=== PATIENT | female | born 1990 | race African-American/Black ===

== ENCOUNTER 2021-08-03 09:21 | Inpatient (IN) | payer OTHER ==
[~2021-08-03] VITALS: Ht 172.7 cm; Wt 73.5 kg
--- NOTE | 2021-08-03 09:32 | NUR ---
CALLED POISON CONTROL AND SPOKE TO LYDIA AND WAS NOTIFIED OF PT STATUS AND ALSO DOSAGE INGESTED THEY SUGGESTED... - NO CHARCOAL FOR THE PT - EKG, CARDIAC MONITORING FOR THE PT - CAUSES DROWSINESS, TACHYCARDIA, HYPOTENSION - FOR MORE EXTREME DOSAGES IT CAN CAUSE QT PROLONGATION OR SEIZURES - MONITOR FOR 6 HOURS AND CHECK EKG AGAIN
--- NOTE | 2021-08-03 09:40 | NUR ---
GENA FROM HOME, TOOK RISPERIDONE 1MG "58 PILLS"1 HOUR AGO STATE HEARING VOICES X 2 DAYS. FELLING DROWSY MEDICAL RECORD TRANSCRIBER. THE PATIENT IS ALERT AND ORIENTED X4. DENIES PAIN. IN ROOM AIR AND DENIES SOB. RESPIRATION REGULAR AND UNLABORED. DENIES SI/HI. ATTACHED TO THE MONITOR. WARM BLANKET PROVIDED FOR COMFORT. WILL CONTINUE TO MONITOR THE PATIENT.
--- NOTE | 2021-08-03 09:52 | NUR ---
COVID ANTIGEN SWAB DONE AND SENT TO THE LAB
[2021-08-03 10:10] LABS: BASOPHILS % (AUTO) 0.7 % (0.0-2.0); EOSINOPHILS % (AUTO) 1.6 % (0.0-6.0); HEMATOCRIT 38 % (33-45); HEMOGLOBIN 12.6 g/dL (11.5-14.8); LYMPHOCYTES # (AUTO) 0.9 K/uL (0.8-4.8); LYMPHOCYTES % (AUTO) 20.8 % (20.0-44.0); MEAN CORPUSCULAR HGB CONC 33 g/dl (31.0-36.0); MEAN CORPUSCULAR VOLUME 94 fL (82-100); MONOCYTES # (AUTO) 0.4 K/uL (0.1-1.30); MONOCYTES % (AUTO) 9.7 % (2.0-12.0); NEUTROPHILS % (AUTO) 67.2 % (43.0-81.0); PLATELET COUNT (AUTO) 271 K/uL (150-450); RED BLOOD CELL COUNT(AUTO) 4.06 MIL/uL (4.0-5.2); WHITE BLOOD COUNT (AUTO) 4.5 K/uL (4.3-11.0)
--- NOTE | 2021-08-03 10:46 | NUR ---
URINE COLLECTED AND SENT TO THE LAB
[2021-08-03 10:52] LABS: ALANINE AMINOTRANSFERASE 21 U/L (12-78); ALBUMIN 3.9 g/dL (3.4-5.0); ALCOHOL, BLOOD < 3 mg/dL (0-0); ALKALINE PHOSPHATASE 71 U/L (46-116); ASPARTATE AMINOTRANSFERASE 15 U/L (15-37); BILIRUBIN,DIRECT 0.2 mg/dL (0.0-0.2); BILIRUBIN,TOTAL 0.7 mg/dL (0.2-1.0); CALCIUM, SERUM 8.8 mg/dL (8.5-10.1); CARBON DIOXIDE 26 mmol/L (21-32); CHLORIDE 105 mmol/L (98-107); GLUCOSE 104 mg/dL (74-106); SODIUM SERUM 141 mmol/L (136-145); TOTAL PROTEIN, SERUM 7.4 g/dL (6.4-8.2); UREA NITROGEN, BLOOD 11 mg/dL (7-18)
[2021-08-03 10:56] LABS: POTASSIUM 2.7 mmol/L (3.5-5.1)
[2021-08-03 10:57] LABS: ACETAMINOPHEN 0 ug/ml (10-30)
[2021-08-03 11:07] LABS: BILIRUBIN,URINE NEGATIVE (NEGATIVE); COLOR,URINE YELLOW (YELLOW); LEUKOCYTE ESTERASE ,URINE NEGATIVE (NEGATIVE); NITRITE, URINE NEGATIVE (NEGATIVE); PH,URINE 5.5 (5.0-8.0); PROTEIN,URINE NEGATIVE (NEGATIVE); UGLUCOSE NEGATIVE (NEGATIVE); UROBILINOGEN,URINE 0.2 EU/dL (0.2)
[2021-08-03 12:24] LABS: BACTERIA,URINE None seen /HPF (None Seen); MUCUS,URINE Few /LPF (None Seen); RBC,URINE 0-2 /HPF (0-2); SQUAMOUS EPITHELIAL CELL,UR Many /HPF (None Seen); WBC,URINE 0-3 /HPF (0-3)
[2021-08-03] MEDS ORDERED: POTASSIUM CHLORIDE 20 MEQ TAB.PRT.SR PO ONE ×2 (13:26→13:30)
--- NOTE | 2021-08-03 13:44 | NUR ---
COVID ANTIGEN SWAB DONE AND SENT TO THE LAB
[2021-08-03] MEDS ORDERED: Magnesium 1GM/D5W 100ML PREMIX 100 ML IV ONE ×2 (13:45→14:48)
[2021-08-03] MEDS: Magnesium 1GM/D5W 100ML PREMIX 100 ML IV SCH ×2 (14:00→15:10)
--- NOTE | 2021-08-03 15:07 | NUR ---
RECEIVED A CALL FROM FROM SARA ([facility] [place]) AND SHE ASKED THE PATIENT TO HAVE 12 LEAD ECG, POTASSIUM, MAGNESIUM AND CALCIUM CHECK IN 1 HR AND IF QTC IS >500 MD TO CLOSELY MONITOR THE PATIENT. ALSO, MONITOR THE PATIENT FOR SEIZURE. DR PYLE MADE AWARE. SEIZURE PRECATIONS TAKEN. WILL CONTINUE TO MONITOR THE PATIENT.
[2021-08-03 17:22] LABS: CALCIUM, SERUM 8.2 mg/dL (8.5-10.1); POTASSIUM 3.6 mmol/L (3.5-5.1)
[2021-08-03 17:26] LABS: MAGNESIUM 3.2 mg/dL (1.8-2.4); PHOSPHORUS 3.1 mg/dL (2.5-4.9)
[2021-08-03] MEDS ORDERED: MAGNESIUM HYDROXIDE 30 ML UDC PO PRN (18:00)
[2021-08-03] MEDS ORDERED: MAG HYDROX/AL HYDROX/SIMETH 30 ML UDC PO PRN (18:00)
[2021-08-03] MEDS ORDERED: ACETAMINOPHEN 325 MG TABLET PO PRN (18:00)
[2021-08-03] MEDS ORDERED: ONDANSETRON HCL/PF 4 MG/2 ML VIAL IVP PRN (18:00)
[2021-08-03] MEDS ORDERED: Z GUARD REMEDY 4 OZ OINT TP PRN (18:00)
--- NOTE | 2021-08-03 19:10 | NUR ---
PAGED MENSWEAR SALESPERSON
--- NOTE | 2021-08-03 19:13 | NUR ---
REPORT GIVEN TO NURSE KUMAR FOR HALINA
--- NOTE | 2021-08-03 21:22 | NUR ---
CALLED NURSE FOR REPORT. SHE WILL CALL BACK.
--- NOTE | 2021-08-03 21:32 | NUR ---
REPORT GIVEN TO LOREE
--- NOTE | 2021-08-03 21:47 | NUR ---
RECORD PRESS OPERATOR NOTE ADMIT 30 YEAR OLD FEMALE TO AUDI UNIT AT ROOM 117-2 ALERT ORIENTED X4 VERBALLY RESPONSIVE ON ROOM AIR O2:97% IV SITE IS ON LEFT AC INTACT PATENT. ADMITTING DIAGNOSIS IS OVERDOSE,SAFETY MEASURE IMPLEMENT BED IN LOW POSITION AND LOCKED,HEAD OF THE BED ELEVATED,CALL LIGHT WITHIN REACH, CONTINUE TO MONITOR.
--- NOTE | 2021-08-03 21:47 | NUR ---
PT TRANSPORTED TO ROOM 117 ON HAIR SPINNING MACHINE OPERATOR PER ACLS PROTOCOL WITHOUT INCIDENT.
[2021-08-03 22:00] VITALS: BP 104/63
[2021-08-03] MEDS: IV NS 0.9% 1,000 ML IV PRN (22:17)
[2021-08-03 22:19] VITALS: BP 104/63
[2021-08-04] VITALS: BP 105/63
[2021-08-04 04:00] VITALS: BP 112/73
--- NOTE | 2021-08-04 06:46 | NUR ---
RN NOTE PATIENT REMAINS ON ALERT ORIENTED X4 VERBALLY RESPONSIVE ON ROOM AIR NO SOB NOT ACUTE DISTRESS NOTED ON NS IV HYDRATION NS 100CC/HR KEPT CLEAN AND DRY ALL THE TIME,KEPT COMFORTABLE ALL NEEDS MET ENDORSE NEXT COMING SHIFT FOR CONTINUATION OF CARE.
--- NOTE | 2021-08-04 07:30 | NUR ---
RN OPENING NOTES RECEIVED PATIENT IN BED, AWAKE, ALERT ORIENTED X4 VERBALLY RESPONSIVE ON ROOM AIR , TOLERATING WELL, NO SOB NOT IN ANY FORM OF ACUTE DISTRESS NOTED. ON NS IV HYDRATION NS 100CC/HR INFUSING WELL ON PATIENT'S LEFT AC G#20. NO S/SX OF INFILTRATION NOTED. SAFETY PRECAUTIONS IN PLACE: BED ON LOWEST LOCKED POSITION, BED ALARM ON. SIDE RAILS UP X 2. CALL LIGHT WITHIN EASY REACH. NO THOUGHTS OF SUICIDAL IDEATION AT THIS TIME. FREQUENT VISUAL CHECKS. WILL CONTINUE TO MONITOR ACCORDINGLY.
[2021-08-04] MEDS: IV NS 0.9% 1,000 ML IV PRN ×2 (07:51→17:26)
[2021-08-04 08:00] VITALS: BP 106/67
[2021-08-04 10:21] LABS: BASOPHILS % (AUTO) 0.7 % (0.0-2.0); EOSINOPHILS % (AUTO) 2.1 % (0.0-6.0); HEMATOCRIT 34 % (33-45); HEMOGLOBIN 11.4 g/dL (11.5-14.8); LYMPHOCYTES # (AUTO) 1.1 K/uL (0.8-4.8); LYMPHOCYTES % (AUTO) 20.4 % (20.0-44.0); MEAN CORPUSCULAR HGB CONC 34 g/dl (31.0-36.0); MEAN CORPUSCULAR VOLUME 94 fL (82-100); MONOCYTES # (AUTO) 0.6 K/uL (0.1-1.30); MONOCYTES % (AUTO) 10.8 % (2.0-12.0); NEUTROPHILS # (AUTO) 3.4 K/uL (1.8-8.9); PLATELET COUNT (AUTO) 238 K/uL (150-450); RED BLOOD CELL COUNT(AUTO) 3.64 MIL/uL (4.0-5.2); WHITE BLOOD COUNT (AUTO) 5.2 K/uL (4.3-11.0)
[2021-08-04 10:42] LABS: MAGNESIUM 2.5 mg/dL (1.8-2.4); PHOSPHORUS 3.6 mg/dL (2.5-4.9); POTASSIUM 3.7 mmol/L (3.5-5.1)
[2021-08-04] MEDS ORDERED: RISP1TAB7 PO (11:06)
[2021-08-04 12:00] VITALS: BP 123/79
[2021-08-04 16:02] VITALS: BP 94/57
--- NOTE | 2021-08-04 18:45 | NUR ---
RN CLOSING NOTES PATIENT IN BED, AWAKE, ALERT ORIENTED X4 VERBALLY RESPONSIVE ON ROOM AIR , TOLERATING WELL, NO SOB NOT IN ANY FORM OF ACUTE DISTRESS NOTED. ON NS IV HYDRATION NS 100CC/HR INFUSING WELL ON PATIENT'S LEFT AC G#20. NO S/SX OF INFILTRATION NOTED. SAFETY PRECAUTIONS IN PLACE: BED ON LOWEST LOCKED POSITION, BED ALARM ON. SIDE RAILS UP X 2. CALL LIGHT WITHIN EASY REACH. NO THOUGHTS OF SUICIDAL IDEATION AT THIS TIME. FREQUENT VISUAL CHECKS. ALL NEEDS ATTENDED AND MET. DUE MEDS GIVEN ORDERED. WILL ENDORSE TO ONCOMING SHIFT FOR HALINA.
[2021-08-04 23:36] VITALS: BP 106/62
[2021-08-05] MEDS: IV NS 0.9% 1,000 ML IV PRN (04:18)
[2021-08-05 04:30] VITALS: BP 104/63
--- NOTE | 2021-08-05 05:58 | NUR ---
END OF SHIFT REPORT Patient in bed, A/O x4. Oxygen sat 100% on room air, observed no sob on ambulation. Denies suicidal thought or ideation. Sinus rhythm in the Tele monitor HR 70. IVF infusing, good appetite. Feeling better and wants to go home today. Denies pain, no other complaints. Will endorse to oncoming RN.
--- NOTE | 2021-08-05 07:36 | NUR ---
RN OPENING NOTES PT WISHES TO LEAVE AMA. PAPERWORK SIGNED. PT WISHES RESPECTED. PT LEFT UNIT IN STABLE CONDITION.
== END 2021-08-05 07:46 | disposition left against medical advice (07) | DRG 918 ==
LOC: ER 09:35 → TELE1 21:25
PROVIDERS: ADMIT Internal Medicine; ATTEND Internal Medicine
DX: T43.592A Poisoning by other antipsychotics and neuroleptics, intentional self-harm, initial encounter (principal); R94.31 Abnormal electrocardiogram [ECG] [EKG]; F32.A Depression, unspecified; F41.9 Anxiety disorder, unspecified; Y92.009 Unspecified place in unspecified non-institutional (private) residence as the place of occurrence of the external cause; Z20.822 Contact with and (suspected) exposure to COVID-19
CPT/HCPCS: 36415; 80048-TC; 80076-TC; 81001; 83735-TC; 84100-TC; 84703-TC; 85025-TC; 87081-TC; C9803; G0378; G0480; J3475; J7030

== ENCOUNTER 2021-10-18 18:23 | Inpatient (IN) | payer OTHER ==
[~2021-10-18] VITALS: Ht 172.7 cm; Wt 80.7 kg
[~2021-10-18 18:23] MED LIST: RISP1TAB7 PO
--- NOTE | 2021-10-18 18:23 | NUR ---
PT BIBRA 881 AND [employer] FROM HOME C/O SUICIDAL IDEATION "I WANT TO TAKE BUNCH OF HERBAL AND ROOT PILLS" PT IS AAOX3, NOT IN RESPIRATORY DISTRESS, V/S STABLE, KEPT RESTED AND COMFORTABLE. SITTER AT BEDSIDE. WILL CONTINUE TO MONITOR.
--- NOTE | 2021-10-18 19:02 | NUR ---
JULIETD UNIT#[id number] AT BEDSIDE
[2021-10-18 19:58] LABS: CALCIUM, SERUM 9.9 mg/dL (8.5-10.1); CARBON DIOXIDE 19 mmol/L (21-32); CHLORIDE 103 mmol/L (98-107); CREATININE 1.5 mg/dL (0.6-1.3); GLUCOSE 133 mg/dL (74-106); POTASSIUM 3.7 mmol/L (3.5-5.1); SODIUM SERUM 137 mmol/L (136-145); UREA NITROGEN, BLOOD 8 mg/dL (7-18)
[2021-10-18 20:04] LABS: ALANINE AMINOTRANSFERASE 20 U/L (12-78); ALBUMIN 4.5 g/dL (3.4-5.0); ALKALINE PHOSPHATASE 86 U/L (46-116); ASPARTATE AMINOTRANSFERASE 21 U/L (15-37); BILIRUBIN,DIRECT 0.1 mg/dL (0.0-0.2); BILIRUBIN,TOTAL 0.8 mg/dL (0.2-1.0); TOTAL PROTEIN, SERUM 8.2 g/dL (6.4-8.2)
[2021-10-18 20:06] LABS: ALCOHOL, BLOOD < 3 mg/dL (0-0)
[2021-10-18 20:17] LABS: BASOPHILS # (AUTO) 0.1 K/uL (0.0-0.2); BASOPHILS % (AUTO) 0.8 % (0.0-2.0); EOSINOPHILS % (AUTO) 0.8 % (0.0-6.0); HEMATOCRIT 43 % (33-45); HEMOGLOBIN 14.3 g/dL (11.5-14.8); LYMPHOCYTES # (AUTO) 1.7 K/uL (0.8-4.8); LYMPHOCYTES % (AUTO) 19.6 % (20.0-44.0); MEAN CORPUSCULAR HGB CONC 33 g/dl (31.0-36.0); MEAN CORPUSCULAR VOLUME 94 fL (82-100); MONOCYTES # (AUTO) 1.2 K/uL (0.1-1.30); MONOCYTES % (AUTO) 13.3 % (2.0-12.0); NEUTROPHILS # (AUTO) 5.8 K/uL (1.8-8.9); NEUTROPHILS % (AUTO) 65.5 % (43.0-81.0); PLATELET COUNT (AUTO) 288 K/uL (150-450); RED BLOOD CELL COUNT(AUTO) 4.57 MIL/uL (4.0-5.2); WHITE BLOOD COUNT (AUTO) 8.8 K/uL (4.3-11.0)
[2021-10-18] MEDS ORDERED: ACTIVATED CHARCOAL 25 GM/120 ML TUBE ONE ×2 (20:22→20:27)
[2021-10-18] MEDS ORDERED: ACTIVATED CHARCOAL 25 GM/120 ML TUBE PO ONE ×2 (20:30→22:00)
--- NOTE | 2021-10-18 21:32 | NUR ---
COVID SWAB DONE AND SENT TO LAB
--- NOTE | 2021-10-18 21:47 | NUR ---
URINE COLLECTED AND SENT TO LAB
[2021-10-18] MEDS ORDERED: ONDANSETRON HCL/PF 4 MG/2 ML VIAL ONE (21:54)
[2021-10-18] MEDS ORDERED: ONDANSETRON HCL/PF 4 MG/2 ML VIAL IVP ONE (22:00)
[2021-10-18 22:52] LABS: BILIRUBIN,URINE NEGATIVE (NEGATIVE); COLOR,URINE YELLOW (YELLOW); LEUKOCYTE ESTERASE ,URINE NEGATIVE (NEGATIVE); NITRITE, URINE NEGATIVE (NEGATIVE); PH,URINE 6.5 (5.0-8.0); PROTEIN,URINE NEGATIVE (NEGATIVE); UGLUCOSE NEGATIVE (NEGATIVE); UROBILINOGEN,URINE 0.2 EU/dL (0.2)
[2021-10-18] MEDS ORDERED: LORAZEPAM 0.5 MG TABLET ONE (23:21)
[2021-10-18] MEDS ORDERED: LORAZEPAM 0.5 MG TABLET PO ONE (23:30)
[2021-10-19] MEDS ORDERED: ONDANSETRON HCL/PF 4 MG/2 ML VIAL IVP PRN
[2021-10-19] MEDS ORDERED: MORPHINE SULFATE INJ 2 MG/ML DISP.SYRIN IV PRN
[2021-10-19] MEDS ORDERED: ACETAMINOPHEN 325 MG TABLET PO PRN
[2021-10-19] MEDS ORDERED: risperiDONE 1 MG TABLET PO SCH
--- NOTE | 2021-10-19 | NUR ---
PER DR BRIZUELA, UPGRADE PT TO AUDI STATUS. NURSE SUP MADE AWARE
--- NOTE | 2021-10-19 00:02 | NUR ---
PER NURSE SUP, PT REQUIRES 1:1 SITTER. WILL NOT HAVE ONE AVAILABLE IN AUDI UNTIL THE AM. MADE AWARE
[2021-10-19 00:17] LABS: CALCIUM, SERUM 9.7 mg/dL (8.5-10.1); CREATININE 1.4 mg/dL (0.6-1.3); POTASSIUM 3.9 mmol/L (3.5-5.1)
[2021-10-19 00:25] LABS: ALBUMIN 4.4 g/dL (3.4-5.0); BILIRUBIN,TOTAL 0.8 mg/dL (0.2-1.0); TOTAL PROTEIN, SERUM 8.3 g/dL (6.4-8.2)
--- NOTE | 2021-10-19 00:30 | NUR ---
US TECH AT PT'S BEDSIDE
[2021-10-19] MEDS ORDERED: PANTOPRAZOLE 40 MG VIAL ONE (01:41)
[2021-10-19] MEDS ORDERED: risperiDONE 1 MG TABLET ONE (01:42)
[2021-10-19] MEDS: PANTOPRAZOLE 40 MG VIAL IV SCH ×3 (01:45→16:04)
[2021-10-19] MEDS: IV NS 0.9% 1,000 ML IV SCH ×2 (01:45→06:48)
--- NOTE | 2021-10-19 02:38 | NUR ---
UPDATED NAUN FROM POISON CONTROL ON PT'S CONDITION. VSS, DENIES S/SX. RECOMMENDATIONS PER NAUN: - RECHECK CMP, EKG, DIGOXIN AFTER 4 HOURS FROM INITIAL DRAW
--- NOTE | 2021-10-19 02:49 | NUR ---
REPEAT EKG DONE; NOTIFIED DR. BRIZUELA VIA TEXT
[2021-10-19 03:37] LABS: BASOPHILS % (AUTO) 0.2 % (0.0-2.0); EOSINOPHILS % (AUTO) 0.1 % (0.0-6.0); HEMATOCRIT 40 % (33-45); HEMOGLOBIN 13.2 g/dL (11.5-14.8); LYMPHOCYTES # (AUTO) 1.1 K/uL (0.8-4.8); LYMPHOCYTES % (AUTO) 10.4 % (20.0-44.0); MEAN CORPUSCULAR HGB CONC 33 g/dl (31.0-36.0); MEAN CORPUSCULAR VOLUME 93 fL (82-100); MONOCYTES % (AUTO) 9.1 % (2.0-12.0); NEUTROPHILS # (AUTO) 8.5 K/uL (1.8-8.9); NEUTROPHILS % (AUTO) 80.2 % (43.0-81.0); PLATELET COUNT (AUTO) 260 K/uL (150-450); RED BLOOD CELL COUNT(AUTO) 4.25 MIL/uL (4.0-5.2); WHITE BLOOD COUNT (AUTO) 10.6 K/uL (4.3-11.0)
[2021-10-19 03:52] LABS: ALBUMIN 3.8 g/dL (3.4-5.0); BILIRUBIN,TOTAL 0.7 mg/dL (0.2-1.0); CALCIUM, SERUM 8.6 mg/dL (8.5-10.1); CREATININE 1.3 mg/dL (0.6-1.3); MAGNESIUM 1.8 mg/dL (1.8-2.4); PHOSPHORUS 2.5 mg/dL (2.5-4.9); TOTAL PROTEIN, SERUM 7.3 g/dL (6.4-8.2)
[2021-10-19] MEDS ORDERED: MORPHINE SULFATE INJ 2 MG/ML DISP.SYRIN ONE (04:47)
[2021-10-19] MEDS ORDERED: LORAZEPAM INJ 2 MG/ML VIAL ONE (04:47)
[2021-10-19] MEDS: LORAZEPAM INJ 2 MG/ML VIAL IV PRN ×2 (04:58→20:10)
--- NOTE | 2021-10-19 07:05 | NUR ---
HEALTH POLICY MANAGER AT PT'S BEDSIDE
--- NOTE | 2021-10-19 07:52 | NUR ---
BED 115-2. ADMITTING AND NURSE NOTIFIED.
--- NOTE | 2021-10-19 08:11 | NUR ---
REPORT GIVEN TO LOREE SHEIKH FOR HALINA
[2021-10-19 08:16] LABS: ALBUMIN 3.7 g/dL (3.4-5.0); BILIRUBIN,TOTAL 0.7 mg/dL (0.2-1.0); CALCIUM, SERUM 8.5 mg/dL (8.5-10.1); CREATININE 1.2 mg/dL (0.6-1.3); POTASSIUM 4.2 mmol/L (3.5-5.1); TOTAL PROTEIN, SERUM 7.1 g/dL (6.4-8.2)
--- NOTE | 2021-10-19 08:27 | NUR ---
TRANSFERRED TO BED 115 IN STABLE CONDITION
--- NOTE | 2021-10-19 08:30 | NUR ---
HOTEL SUPERINTENDENT NOTE RECEIVED PATIENT FROM ER AT ROOM 115 ALERT ORIENTED X4 VERBALLY RESPONSIVE ON ROOM AIR ADMITTING DIAGNOSIS IS Intentional OD,WITH SITTER,IV SITE IS ON LEFT AC INTACT PATENT SAFETY MEASURE IMPLEMENT,HEAD OF THE BED ELEVATED CALL LIGHT WITHIN REACH CONTINUE TO MONITOR.
[2021-10-19] MEDS: DOCUSATE SODIUM LIQ 100 MG/10 ML UDC PO SCH ×2 (09:10→16:04)
[2021-10-19] MEDS: POLYETHYLENE GLYCOL 3350 17 GM POWD.PACK PO SCH (09:10)
[2021-10-19] MEDS: HEPARIN SODIUM, PORCINE 5000 UNITS/1 ML VIAL SQ SCH ×2 (09:12→20:11)
[2021-10-19 10:05] VITALS: BP 110/75
[2021-10-19 11:43] LABS: ALBUMIN 3.7 g/dL (3.4-5.0); BILIRUBIN,TOTAL 0.8 mg/dL (0.2-1.0); CALCIUM, SERUM 8.7 mg/dL (8.5-10.1); CREATININE 1.3 mg/dL (0.6-1.3); TOTAL PROTEIN, SERUM 7.2 g/dL (6.4-8.2)
[2021-10-19 12:00] VITALS: BP 121/66
[2021-10-19] MEDS: IV NS 0.9% 1,000 ML IV PRN ×2 (14:41→19:51)
--- NOTE | 2021-10-19 15:24 | NUR ---
SS Note: Pt. Is a 30-year-old female who demonstrates adequate insight to the reason for hospitalization. Per pt., she was brought in by [employer] placed on a 5150 hold for danger to self. Per hold, pt. contacted the [employer] due to taking poisonous leaves, pt. was aware that the leaves were poisonous. Pt. was oriented x3, alert, and cooperative. During interview, pt. was capable of following directions and appeared groomed. Pt.s speech was at a normal rate and pt.s mood was elevated. Pt. reported no hx of mental health, substance abuse, suicidal ideation, or homicidal ideation. Pt. denies auditory hallucinations, visual hallucinations, paranoia, or delusions. SW explored pt.s living situation. Per pt., she lives alone [[address] [facility]. [address] [place] [id number]]. Pt. denies substance use but per EMR, pt. is positive for marijuana. Pt. stated that she took the poisonous leaves to calm her down since she has anxiety. Pt. refused to answer any further questions and keeps stating that she wants to leave. SW stated that she is on a 5150 hold and she cannot leave. Plan: Pt. is on a [address] Carter will be coming tomorrow [10/19] to evaluate pt. He will decide whether or not pt.s hold should be broken. If pt. continues the hold, she will be transferred to [place] psych facility.
--- NOTE | 2021-10-19 15:24 | NUR ---
[facility] main line: [phone] [If hold continues, please call this number to set up transfer]. Sheila from [place]: [phone] [place] Manager Community Lu: [phone]
[2021-10-19 15:59] LABS: ALBUMIN 3.6 g/dL (3.4-5.0); BILIRUBIN,TOTAL 0.7 mg/dL (0.2-1.0); CALCIUM, SERUM 8.5 mg/dL (8.5-10.1); CREATININE 1.1 mg/dL (0.6-1.3)
[2021-10-19 16:00] VITALS: BP 114/63
--- NOTE | 2021-10-19 18:49 | NUR ---
RN NOTE PATIENT REMOVED IV LINE EDUCATED HER AND STARTED A NEW IV LINE ON RIGHT FOREARM #22 G INTACT PATENT.
--- NOTE | 2021-10-19 18:50 | NUR ---
RN NOTE PATIENT REMAINS ALERT ON ROOM AIR NO SOB NOT ACUTE DISTRESS NOTED,ON IV HYDRATION NS 150CC/HR ENDORSE NEXT COMING SHIFT FOR CONTINUATION OF CARE.
--- NOTE | 2021-10-19 19:30 | NUR ---
RN NOTE RECEIVED PATIENT IN BED, AWAKE, AND VERBALLY RESPONSIVE. AOX4. ABLE TO MAKE NEEDS KNOWN. BREATHING EVEN AND UNLABORED. ON ROOM AIR WITH NO RESPIRATORY DISTRESS. PATIENT ON TELEMETRY MONITORING. DENIES CHEST PAIN. NO DISCOMFORT AT THIS TIME. SKIN IS WARM AND DRY TO TOUCH. RIGHT FOREARM 22G PIV INFUSING NS AT 150 CC/HR. NO INFILTRATION. 1 TO 1 SITTER PRESENT AT BEDSIDE. PATIENT IS AMBULATORY TO THE RESTROOM. DENIES FEELINGS OF SYNCOPE. ALL NEEDS ATTENDED. PROVIDED WITH FLUIDS FOR HYDRATION. REMINDED PATIENT TO USE CALL LIGHT WHEN ASSISTANCE IS NEEDED. BED LOW, IN LOCKED POSITION.
[2021-10-19 19:35] LABS: ALBUMIN 3.6 g/dL (3.4-5.0); BILIRUBIN,TOTAL 0.6 mg/dL (0.2-1.0); CALCIUM, SERUM 8.4 mg/dL (8.5-10.1); CREATININE 1.1 mg/dL (0.6-1.3); POTASSIUM 4.1 mmol/L (3.5-5.1); TOTAL PROTEIN, SERUM 6.9 g/dL (6.4-8.2)
[2021-10-19 20:00] VITALS: BP 122/69
--- NOTE | 2021-10-19 23:00 | NUR ---
RN NOTE AT 1999 PATIENT REQUESTING FOR MEDICATION TO "CALM ME DOWN". UNABLE TO RELAX. PROVIDED WITH EXTRA BLANKETS. LIGHTS DIMMED. ADMINISTERED ATIVAN PRN PER MD ORDER. PATIENT ASLEEP AT THIS TIME.
[2021-10-19 23:55] LABS: ALBUMIN 3.3 g/dL (3.4-5.0); BILIRUBIN,TOTAL 0.6 mg/dL (0.2-1.0); CALCIUM, SERUM 8.1 mg/dL (8.5-10.1); CREATININE 1.1 mg/dL (0.6-1.3); POTASSIUM 3.9 mmol/L (3.5-5.1); TOTAL PROTEIN, SERUM 6.6 g/dL (6.4-8.2)
[2021-10-20] VITALS: BP 115/65
[2021-10-20] MEDS: IV NS 0.9% 1,000 ML IV PRN ×3 (02:06→22:11)
[2021-10-20 03:09] LABS: ALBUMIN 3.3 g/dL (3.4-5.0); BILIRUBIN,TOTAL 0.6 mg/dL (0.2-1.0); CALCIUM, SERUM 8.1 mg/dL (8.5-10.1); CREATININE 1.1 mg/dL (0.6-1.3); POTASSIUM 4.1 mmol/L (3.5-5.1); TOTAL PROTEIN, SERUM 6.4 g/dL (6.4-8.2)
[2021-10-20 04:00] VITALS: BP 129/69
--- NOTE | 2021-10-20 06:30 | NUR ---
RN NOTE NO SIGNIFICANT CHANGES. PATIENT SLEPT WELL THROUGH THE NIGHT. PATIENT IS AMBULATORY AND ASSISTED TO THE RESTROOM BY SITTER AND ME. KEPT SAFE AT ALL TIMES. NO EPISODE OF SYMPTOMATIC BRADYCARDIA. ALL NEEDS ATTENDED. BED LOW, IN LOCKED POSITION. CALL LIGHT WITHIN REACH.
--- NOTE | 2021-10-20 07:30 | NUR ---
AUDI RN AM NOTE RECEIVED PATIENT IN BED, AWAKE, ABLE TO MAKE NEEDS KNOWN, CALM, COOPERATIVE, AOX4. ON ROOM AIR, O2 SAT 99%, RESPIRATION UNLABORED, NO RESPIRATORY DISTRESS. DENIES PAIN/DISCOMFORT AT THIS TIME. SR HR 64 ON MONITOR. WITH FRA G22 IV ACCESS, NS AT 150 ML/HR INFUSING WELL, SITE CLEAR. 1 TO 1 SITTER PRESENT AT BEDSIDE. PATIENT IS AMBULATORY TO THE RESTROOM. DENIES FEELINGS OF SYNCOPE. DENIES SUICIDAL INTENTION OR HURTING SELF. PROVIDED WITH FLUIDS FOR HYDRATION. POC DISCUSSED, VERBALIZED UNDERSTANDING. REMINDED PATIENT TO USE CALL LIGHT WHEN ASSISTANCE IS NEEDED. BED LOW, IN LOCKED POSITION. WILL CONT TO MONITOR.
[2021-10-20 08:00] VITALS: BP 91/72
[2021-10-20] MEDS: DOCUSATE SODIUM LIQ 100 MG/10 ML UDC PO SCH ×2 (08:52→17:14)
[2021-10-20] MEDS: PANTOPRAZOLE 40 MG VIAL IV SCH (08:53)
[2021-10-20] MEDS: POLYETHYLENE GLYCOL 3350 17 GM POWD.PACK PO SCH (08:53)
[2021-10-20] MEDS: HEPARIN SODIUM, PORCINE 5000 UNITS/1 ML VIAL SQ SCH ×2 (08:54→20:23)
--- NOTE | 2021-10-20 09:03 | NUR ---
RN NOTES DR. DE LA CRUZ AT BEDSIDE
--- NOTE | 2021-10-20 09:30 | NUR ---
RN NOTES DUE MEDS GIVEN
[2021-10-20 09:33] LABS: ALBUMIN 3.6 g/dL (3.4-5.0); BILIRUBIN,TOTAL 0.7 mg/dL (0.2-1.0); CALCIUM, SERUM 8.4 mg/dL (8.5-10.1); CREATININE 1.1 mg/dL (0.6-1.3); POTASSIUM 3.9 mmol/L (3.5-5.1)
[2021-10-20] MEDS: risperiDONE-M 0.5 MG TAB.RAPDIS PO SCH ×2 (10:16→17:14)
[2021-10-20 11:55] LABS: ALBUMIN 3.6 g/dL (3.4-5.0); BILIRUBIN,TOTAL 0.6 mg/dL (0.2-1.0); CALCIUM, SERUM 8.2 mg/dL (8.5-10.1); CREATININE 1.3 mg/dL (0.6-1.3); POTASSIUM 3.7 mmol/L (3.5-5.1)
[2021-10-20 12:00] VITALS: BP 121/67
[2021-10-20 15:16] LABS: ALBUMIN 3.6 g/dL (3.4-5.0); BILIRUBIN,TOTAL 0.6 mg/dL (0.2-1.0); CALCIUM, SERUM 8.5 mg/dL (8.5-10.1); CREATININE 1.2 mg/dL (0.6-1.3); POTASSIUM 3.7 mmol/L (3.5-5.1)
--- NOTE | 2021-10-20 15:25 | NUR ---
RN NOTES IV ACCESS INFILTRATED, NOTIFIED DR. SUMNER, PT REFUSING TO START ANOTHER ONE DESPITE EXPLAINING THE NEED TO HAVE ONE.
[2021-10-20 16:00] VITALS: BP 113/64
--- NOTE | 2021-10-20 16:37 | NUR ---
RN NOTES SPOKE WITH DR. JONO LISA MD, ACCORDING TO HIM. HIS EQUESTRIAN TRAINER TALKED TO THE EQUESTRIAN TRAINER AT [facility] THAT THE PT NEEDS A HOSPITAL BED ONCE MEDICALLY CLEARED. EQUESTRIAN TRAINER AT [facility] - [phone] DE LA CRUZ. EQUESTRIAN TRAINER BISHNU NOTIFIED, BUT ACCORDING TO HER, SHE CALLED [facility] AND THERES NO AVAILABLE BED AT THIS TIME. AND THAT THE PATIENT NEEDS TO WAIT. PATIENT CAN NOT GO HOME DUE TO 5150 HOLD. CHARGE NURSE SOON, AWARE.
[2021-10-20] MEDS: PANTOPRAZOLE 40 MG TABLET.DR PO SCH (17:14)
--- NOTE | 2021-10-20 18:42 | NUR ---
AUDI RN CLOSING NOTE PATIENT IN BED, RESTING, AWAKE, ABLE TO MAKE NEEDS KNOWN, CALM, COOPERATIVE, AOX4. ON ROOM AIR, O2 SAT 99%, RESPIRATION UNLABORED, NO RESPIRATORY DISTRESS. DENIES PAIN/DISCOMFORT AT THIS TIME. SR HR 73 ON MONITOR. WITH RFA G22 IV ACCESS, INFILTRATED, BUT PATIENT REFUSED TO RESTART OR GET POKED DESPITE EXPLAINING THE IMPORTANCE. MD AWARE. 1 TO 1 SITTER PRESENT AT BEDSIDE. PATIENT IS AMBULATORY TO THE RESTROOM. DENIES FEELINGS OF SYNCOPE. DENIES SUICIDAL INTENTION OR HURTING SELF. PROVIDED WITH FLUIDS FOR HYDRATION. REMINDED PATIENT TO USE CALL LIGHT WHEN ASSISTANCE IS NEEDED. BED LOW, IN LOCKED POSITION. ALL NEEDS MET AT THIS TIME. WILL ENDORSE TO NEXT SHIFT FOR HALINA.
--- NOTE | 2021-10-20 19:10 | NUR ---
RN NOTE RECEIVED PATIENT IN BED, AO X 4, IN NO ACUTE DISTRESS AT THIS TIME, ON 5150 HOLD, SITTER AT BEDSIDE. RESPIRATION UNLABORED, SATURATION AT 100% ON ROOM AIR, SR ON THE MONITOR, HR IS 68. ASKED IF SHE HAS PLANS OF HURTING HERSELF AT THE MOMENT, SHE ANSWERED: "I DON'T". IV LINE AT RFA 22G INFILTRATED, REMOVED ASEPTICALLY, CATHETER INTACT, WARM COMPRESS PLACED OVER SITE, EXTREMITY ELEVATED, INSERTED ANOTHER IV LINE AT RFA 20G, PATENT AND FLUSHING WELL, NS INFUSING AT 150 ML/HR. PATIENT CONTINENT AND AMBULATORY. SAFETY MEASURES IMPLEMENTED. PATIENT BED ALARM IS ON. HEAD OF BED ELEVATED. BED IS LOCKED, IN LOWEST POSITION AND SIDE RAILS UP. CALL LIGHT WITHIN REACH OF THE PATIENT. WILL CONTINUE TO MONITOR AND REASSESS FOR ANY CHANGES.
[2021-10-20 19:30] LABS: ALBUMIN 3.6 g/dL (3.4-5.0); BILIRUBIN,TOTAL 0.5 mg/dL (0.2-1.0); CALCIUM, SERUM 8.6 mg/dL (8.5-10.1); CREATININE 1.1 mg/dL (0.6-1.3); POTASSIUM 3.6 mmol/L (3.5-5.1); TOTAL PROTEIN, SERUM 7.2 g/dL (6.4-8.2)
[2021-10-20] MEDS: LORAZEPAM INJ 2 MG/ML VIAL IV PRN (19:32)
[2021-10-20 20:00] VITALS: BP 119/58
[2021-10-21] VITALS: BP 97/52
[2021-10-21 00:13] LABS: ALBUMIN 3.3 g/dL (3.4-5.0); BILIRUBIN,TOTAL 0.6 mg/dL (0.2-1.0); CALCIUM, SERUM 8.2 mg/dL (8.5-10.1); CREATININE 1.1 mg/dL (0.6-1.3); POTASSIUM 3.6 mmol/L (3.5-5.1); TOTAL PROTEIN, SERUM 6.6 g/dL (6.4-8.2)
[2021-10-21 04:00] VITALS: BP 104/68
[2021-10-21 05:12] LABS: ALBUMIN 3.2 g/dL (3.4-5.0); BILIRUBIN,TOTAL 0.6 mg/dL (0.2-1.0); CALCIUM, SERUM 8.3 mg/dL (8.5-10.1); POTASSIUM 3.7 mmol/L (3.5-5.1); TOTAL PROTEIN, SERUM 6.4 g/dL (6.4-8.2)
[2021-10-21 07:30] LABS: ALBUMIN 3.3 g/dL (3.4-5.0); BILIRUBIN,TOTAL 0.6 mg/dL (0.2-1.0); CALCIUM, SERUM 8.3 mg/dL (8.5-10.1); CREATININE 1.1 mg/dL (0.6-1.3); POTASSIUM 3.8 mmol/L (3.5-5.1); TOTAL PROTEIN, SERUM 6.4 g/dL (6.4-8.2)
--- NOTE | 2021-10-21 07:30 | NUR ---
AUDI RN AM NOTE RECEIVED PATIENT IN BED, AWAKE, ABLE TO MAKE NEEDS KNOWN, CALM, COOPERATIVE, AOX4. ON ROOM AIR, O2 SAT 100%, RESPIRATION UNLABORED, NO RESPIRATORY DISTRESS. DENIES PAIN/DISCOMFORT AT THIS TIME. SR HR 76 ON MONITOR. WITH RFA G20 IV ACCESS, NS AT 150 ML/HR INFUSING WELL, SITE CLEAR. PATIENT IS AMBULATORY TO THE RESTROOM. DENIES FEELINGS OF SYNCOPE. DENIES SUICIDAL INTENTION OR HURTING SELF. PROVIDED WITH FLUIDS FOR HYDRATION. POC DISCUSSED, VERBALIZED UNDERSTANDING. REMINDED PATIENT TO USE CALL LIGHT WHEN ASSISTANCE IS NEEDED. BED LOW, IN LOCKED POSITION. WILL CONT TO MONITOR.
[2021-10-21 08:00] VITALS: BP 128/69
[2021-10-21] MEDS: HEPARIN SODIUM, PORCINE 5000 UNITS/1 ML VIAL SQ SCH ×2 (09:00→21:21)
[2021-10-21] MEDS: POLYETHYLENE GLYCOL 3350 17 GM POWD.PACK PO SCH (09:13)
[2021-10-21] MEDS: DOCUSATE SODIUM LIQ 100 MG/10 ML UDC PO SCH ×2 (09:13→17:16)
[2021-10-21] MEDS: PANTOPRAZOLE 40 MG TABLET.DR PO SCH ×2 (09:13→17:16)
[2021-10-21] MEDS: risperiDONE-M 0.5 MG TAB.RAPDIS PO SCH ×2 (09:13→17:16)
--- NOTE | 2021-10-21 09:30 | NUR ---
RN NOTES DUE MEDS GIVEN
--- NOTE | 2021-10-21 09:53 | NUR ---
RN NOTES DR. DE LA CRUZ AT BEDSIDE. SPOKE WITH CASE MANAGEMENT - BISHNU. PATIENT FOR TRANSFER TO [facility], BED WOULD BE AVAILABLE TOMORROW. HOLD RENEWED BY DR. DE LA CRUZ.
[2021-10-21 12:00] VITALS: BP 134/77
[2021-10-21 15:30] LABS: ALBUMIN 3.8 g/dL (3.4-5.0); CALCIUM, SERUM 8.7 mg/dL (8.5-10.1); CREATININE 1.2 mg/dL (0.6-1.3); POTASSIUM 3.4 mmol/L (3.5-5.1); TOTAL PROTEIN, SERUM 7.4 g/dL (6.4-8.2)
[2021-10-21 16:00] VITALS: BP 107/65
--- NOTE | 2021-10-21 16:48 | NUR ---
RN NOTES PER SAMUEL MATTHEWS, PATIENT IS REQUESTING A WRIT HEARING. PATIENT CAN NOT LEAVE UNTIL THE HEARING. DR DE LA CRUZ PUT HER ON 3450. GPS NEEDS TO RRANGE THIS TOMORROW. AND SHE SAMUEL MATTHEWS WILL SPEAK TO THEM. Addendum: 10/21/21 at 1704 by MARILYN CRAWFORD RN ADDENDUM MR HIEU MEDINA, AWARE.
[2021-10-21] MEDS: LORAZEPAM INJ 2 MG/ML VIAL IV PRN (17:17)
[2021-10-21 17:58] LABS: ALBUMIN 3.9 g/dL (3.4-5.0); BILIRUBIN,TOTAL 0.6 mg/dL (0.2-1.0); CALCIUM, SERUM 8.8 mg/dL (8.5-10.1); CREATININE 1.2 mg/dL (0.6-1.3); POTASSIUM 3.9 mmol/L (3.5-5.1); TOTAL PROTEIN, SERUM 7.3 g/dL (6.4-8.2)
[2021-10-21 18:15] LABS: BILIRUBIN,TOTAL 0.5 mg/dL (0.2-1.0)
--- NOTE | 2021-10-21 18:35 | NUR ---
AUDI RN CLOSING NOTE PATIENT IN BED, RESTING, AWAKE, ABLE TO MAKE NEEDS KNOWN, CALM, COOPERATIVE, AOX4. ON ROOM AIR, O2 SAT 99%, RESPIRATION UNLABORED, NO RESPIRATORY DISTRESS. DENIES PAIN/DISCOMFORT AT THIS TIME. SR HR ON MONITOR. WITH LFA G20 IV ACCESS, REFUSED IVF FOR NOW. DESPITE EXPLAINING THE IMPORTANCE. MD AWARE. NEEDS 1:1 SITTER PRESENT AT BEDSIDE. PATIENT IS AMBULATORY TO THE RESTROOM. DENIES FEELINGS OF SYNCOPE. DENIES SUICIDAL INTENTION OR HURTING SELF. PROVIDED WITH FLUIDS FOR HYDRATION. REMINDED PATIENT TO USE CALL LIGHT WHEN ASSISTANCE IS NEEDED. BED LOW, IN LOCKED POSITION. ALL NEEDS MET AT THIS TIME. WILL ENDORSE TO NEXT SHIFT FOR HALINA.
--- NOTE | 2021-10-21 19:45 | NUR ---
RN NOTE RECEIVED PT AWAKE, AOX4. NOT IN ANY DISTRESS. DENIES SOB OR PAIN. SITTER AT BEDSIDE ON 5250 HOLD. PT ON TELE MONITOR SHOWS SR WIT HR 70. WILL CONTINUE TO MONITOR.
[2021-10-21 20:00] VITALS: BP 123/64
[2021-10-21 20:04] LABS: ALBUMIN 3.5 g/dL (3.4-5.0); BILIRUBIN,TOTAL 0.5 mg/dL (0.2-1.0); CALCIUM, SERUM 8.5 mg/dL (8.5-10.1); CREATININE 1.2 mg/dL (0.6-1.3); POTASSIUM 3.4 mmol/L (3.5-5.1); TOTAL PROTEIN, SERUM 6.9 g/dL (6.4-8.2)
--- NOTE | 2021-10-21 20:55 | NUR ---
RN NOTE PT K 3.4, REPORTED TO DR GALVAN. ORDERED REPEAT IN AM.
--- NOTE | 2021-10-21 22:56 | NUR ---
RN NOTE PT VERBALIZES ANXIOUSNESS. DENIES ANY SI. SITTER AT BEDSIDE. EARLY FOR ATIVAN, NOTIFIED DR GALVAN. ORDERED XANAX 0.25MG ONE TIME ORDER.
[2021-10-21] MEDS ORDERED: ALPRAZOLAM 0.25 MG TABLET PO ONE (23:00)
[2021-10-22] VITALS: BP 108/69
--- NOTE | 2021-10-22 00:15 | NUR ---
RN NOTE PT SLEEPING, AROUSES EASILY. PT VERBALIZES SHE FEELS OK. WILL CONTINUE TO MONITOR.
[2021-10-22 04:00] VITALS: BP 120/60
[2021-10-22 06:22] LABS: BASOPHILS % (AUTO) 0.4 % (0.0-2.0); EOSINOPHILS % (AUTO) 6.3 % (0.0-6.0); HEMATOCRIT 38 % (33-45); HEMOGLOBIN 12.7 g/dL (11.5-14.8); LYMPHOCYTES # (AUTO) 2.1 K/uL (0.8-4.8); LYMPHOCYTES % (AUTO) 31.9 % (20.0-44.0); MEAN CORPUSCULAR HGB CONC 34 g/dl (31.0-36.0); MEAN CORPUSCULAR VOLUME 94 fL (82-100); MONOCYTES # (AUTO) 0.7 K/uL (0.1-1.30); MONOCYTES % (AUTO) 10.6 % (2.0-12.0); NEUTROPHILS # (AUTO) 3.4 K/uL (1.8-8.9); NEUTROPHILS % (AUTO) 50.8 % (43.0-81.0); PLATELET COUNT (AUTO) 224 K/uL (150-450); RED BLOOD CELL COUNT(AUTO) 4.04 MIL/uL (4.0-5.2); WHITE BLOOD COUNT (AUTO) 6.7 K/uL (4.3-11.0)
[2021-10-22 06:25] LABS: ALBUMIN 3.6 g/dL (3.4-5.0); BILIRUBIN,TOTAL 0.7 mg/dL (0.2-1.0); CALCIUM, SERUM 8.8 mg/dL (8.5-10.1); CREATININE 1.2 mg/dL (0.6-1.3); POTASSIUM 3.3 mmol/L (3.5-5.1); TOTAL PROTEIN, SERUM 6.9 g/dL (6.4-8.2)
--- NOTE | 2021-10-22 06:59 | NUR ---
RN NOTE PT AWAKE, SITTING IN BED, DENIES ANY PAIN. DENIES ANY SI OR ANXIOUSNESS. SITTER AT BEDSIDE. NEEDS WERE ATTENDED. REMAIN SR ON TELE MONITOR. WITH HR 75. WILL ENDORSE TO NEXT SHIFT NURSE FOR HALINA.
[2021-10-22 08:00] VITALS: BP 115/73
--- NOTE | 2021-10-22 09:18 | NUR ---
VINCENT Note: SW met with pt to discuss the writ process. Pt stated that she does not want to sign the writ. SW explained the writ multiple times and she refused to sign.
--- NOTE | 2021-10-22 09:19 | NUR ---
VINCENT Note: VINCENT spoke with Lu ([phone]) and she reported that this promotion writer needs to be in contact with [facility] ([phone]) Ext: [phone]). VINCENT spoke with [facility] who stated that pt is on top of the list and that the doctor at the [facility] will review pt's clinicals and will notify around 1:30PM if a bed is available.
[2021-10-22] MEDS: HEPARIN SODIUM, PORCINE 5000 UNITS/1 ML VIAL SQ SCH (09:48)
[2021-10-22] MEDS: POLYETHYLENE GLYCOL 3350 17 GM POWD.PACK PO SCH (09:49)
[2021-10-22] MEDS: DOCUSATE SODIUM LIQ 100 MG/10 ML UDC PO SCH (09:49)
[2021-10-22] MEDS: PANTOPRAZOLE 40 MG TABLET.DR PO SCH (09:50)
[2021-10-22] MEDS: risperiDONE-M 0.5 MG TAB.RAPDIS PO SCH (09:53)
--- NOTE | 2021-10-22 10:28 | NUR ---
Faxed clinicals over to [facility] [fax: [phone], tele: [phone]], [facility] [fax: [phone], tele: [phone]], [facility] [fax: [phone], tele: [phone]].
[2021-10-22] MEDS ORDERED: POTASSIUM CHLORIDE 20 MEQ TAB.PRT.SR PO SCH (11:00)
[2021-10-22 12:00] VITALS: BP 115/70
[2021-10-22] MEDS: LORAZEPAM INJ 2 MG/ML VIAL IV PRN (12:23)
--- NOTE | 2021-10-22 15:12 | NUR ---
[facility] CONTACT/DISCHARGE PLAN: VINCENT SPOKE WITH ASYA COORDINATOR FROM THE [facility] ([phone]) EXT: [id number] WHO STATED THAT PT IS ACCEPTED AND THEY HAVE A BED AVAILABLE. PATIENT WILL BE GOING TO THE [facility] AND THE STAFF IS AWARE [place] [id number] [address] [place] [id number] Psych ER # [phone] ext: [phone] Addendum: 10/22/21 at 1515 by VINCENT WYATT PATIENT WILL BE THEN TRANSFERRED TO [facility]
--- NOTE | 2021-10-22 15:30 | NUR ---
VINCENT Note: VINCENT notified [facility] Coordinator from the [facility] ([phone], ext:[phone]) that transportation will be around 4PM. She is aware.
[2021-10-22 16:00] VITALS: BP 114/86
--- NOTE | 2021-10-22 16:30 | NUR ---
rn notes: called [facility] and spoke to Sae and gave report
--- NOTE | 2021-10-22 16:45 | NUR ---
RN notes: [facility] and picked up patient to [facility], pt stated she has no belonging
== END 2021-10-22 16:40 | DRG 917 ==
LOC: ER 18:24 → TRANSITION 10-19 01:02 → TELE1 10-19 07:59 → TELE-TD 10-19 11:09
PROVIDERS: ADMIT Internal Medicine; ATTEND Nurse Practitioner Acute Care
DX: T62.2X2 Toxic effect of other ingested (parts of) plant(s), intentional self-harm (principal); N17.0 Acute kidney failure with tubular necrosis; E87.2 Acidosis; F31.2 Bipolar disorder, current episode manic severe with psychotic features; F29 Unspecified psychosis not due to a substance or known physiological condition; Y92.89 Other specified places as the place of occurrence of the external cause; Z20.822 Contact with and (suspected) exposure to COVID-19; Z79.899 Other long term (current) drug therapy; Y92.129 Unspecified place in nursing home as the place of occurrence of the external cause; Z91.51 Personal history of suicidal behavior; F41.9 Anxiety disorder, unspecified; Z86.79 Personal history of other diseases of the circulatory system; F06.8 Other specified mental disorders due to known physiological condition
CPT/HCPCS: 36415; 80048-TC; 80053-TC; 80076-TC; 80162-TC; 82550-TC; 83605-TC; 83735-TC; 84100-TC; 84703-TC; 85025-TC; 87081-TC; 93307-TC; C9113; C9803; G0378; G0480; J1644; J2060; J2270; J2405; J3490; J7030